=== PATIENT | male | born 1935 | race Caucasian/White ===

== ENCOUNTER → 2022-10-29 13:06 | Outpatient (BNV) | payer MEDICARE, SELFPAY | PROVIDERS: PCP Internal Medicine; Visit Provider Internal Medicine | DX: C91.10 Chronic lymphocytic leukemia of B-cell type not having achieved remission (principal); Z85.46 Personal history of malignant neoplasm of prostate; D48.5 Neoplasm of uncertain behavior of skin | CPT/HCPCS: 99204; 99212; 99213; 99214; G2211 ==